=== PATIENT | male | born 1995 ===

== ENCOUNTER 2024-03-26 12:48 | Outpatient (REF) | payer MEDICAID, SELFPAY | END 2024-03-26 12:49 | disposition home or self-care (01) | LOC: HO.SH 12:48 | PROVIDERS: Visit Provider Student in an Organized Health Care Education/Training Program | DX: Z01.118 Encounter for examination of ears and hearing with other abnormal findings (principal); H93.293 Other abnormal auditory perceptions, bilateral | CPT/HCPCS: 92557; 92567 ==